=== PATIENT | male | born 1970 ===

== ENCOUNTER 2019-03-04 07:44 | Emergency (ER) | payer MEDICAID ==
[~2019-03-04] VITALS: Ht 182.9 cm; Wt 103.3 kg
[2019-03-04 08:40] LABS: RAPID INFLUENZA A POSITIVE (Negative); RAPID INFLUENZA B Negative (Negative)
--- NOTE | 2019-03-04 09:03 | NUR ---
PT TO ROOM FROM [facility], PT ATTACHED TO BP AND SPO2 MONITORS. PT REPORTS REASON FOR ED VISIT IS SUBJECTIVE FEVER, CHILLS AND COUGH X 2-3 DAYS. PT IS A&O, RESPS EVEN AND UNLABORED. MASK IN PLACE. CALL LIGHT IN REACH. ALL RESULTS BACK, CHART UP FOR RECHECK.
[2019-03-04 09:05] VITALS: BP 113/77
--- NOTE | 2019-03-04 09:07 | NUR ---
DROPLET PRECAUTIONS INITIATED
--- NOTE | 2019-03-04 09:34 | NUR ---
PT ELOPED AFTER BEING INFORMED THAT HE IS FLU POSITIVE.
== END 2019-03-04 09:35 | disposition left against medical advice (07) ==
LOC: ED 09:29
DX: J09.X2 Influenza due to identified novel influenza A virus with other respiratory manifestations (principal); B34.9 Viral infection, unspecified
CPT/HCPCS: 71046; 87400; 99284